=== PATIENT | female | born 1950 | race Caucasian/White ===

== ENCOUNTER 2024-07-02 07:59 | Emergency (ER) | payer MEDICARE, SELFPAY ==
[2024-07-02 08:07] VITALS: BP 183/95
[2024-07-02 08:51] LABS: % Basophils 0.6 % (0-2); % Eosinophils 2.8 % (0-6); % Immature Granulocytes 0.4 % (0-0.5); % Lymphocytes 24.3 % (20.5-51.1); % Monocytes 7.7 % (1.7-9.3); % Neutrophils 64.2 % (42.2-75.2); Absolute Basophils 0.1 10^3/uL (0-0.2); Absolute Eosinophils 0.2 10^3/uL (0-0.7); Absolute Monocytes 0.6 10^3/uL (0.1-0.6); Absolute Neutrophils 5.3 10^3/uL (1.4-6.5); Hematocrit 39.9 % (37.0-47.0); Hemoglobin 14.4 g/dL (12.0-16.0); Mean Corp Hgb Conc. 36.1 g/dL (33.0-37.0); Mean Corpuscular Hgb 32.6 pg (27.0-31.0); Mean Corpuscular Volume 90.3 fL (81.0-99.0); Mean Platelet Volume 10.5 fL (7.4-10.4); Nucleated Red Blood Cells % 0 %; Platelet Count 205 10^3/uL (130-400); Red Blood Cell Count 4.42 10^6/uL (4.20-5.40); Red Cell Dist. Width 12.3 % (11.5-14.5); White Blood Cell Count 8.2 10^3/uL (4.8-10.8)
[2024-07-02 09:02] LABS: ALT (SGPT) 43 U/L (0-35); AST (SGOT) 39 U/L (14-36); Alkaline Phosphatase 96 U/L (38-126); Blood Urea Nitrogen 18 mg/dl (7-17); Calcium 10.2 mg/dl (8.4-10.2); Carbon Dioxide 24 mmol/L (22-30); Chloride 99 mmol/L (98-107); Glucose 107 mg/dl (70-99); Lipase 91 U/L (23-300); Potassium 4.1 mmol/L (3.5-5.1); Sodium 135 mmol/L (135-145); Total Bilirubin 0.6 mg/dl (0.2-1.3); Total Protein 8.1 g/dl (6.3-8.2); eGFR > 60.00
[2024-07-02 09:16] LABS: Urine Albumin 2+ (Neg - Trace); Urine Bilirubin Negative (Negative); Urine Character Clear (Clear); Urine Color Yellow; Urine Glucose Negative (Negative); Urine Ketone Negative (Negative); Urine Leukocyte Negative (Negative); Urine Nitrite Negative (Negative); Urine Occult Blood 4+ (Negative); Urine Urobilinogen Negative (Neg - 1+)
[2024-07-02 10:10] LABS: Urine Bacteria Few (Negative); Urine Red Blood Cell 30-40 /HPF (0-2); Urine White Cell 0-2 /HPF (0-5)
--- NOTE | 2024-07-02 11:22 | ED.GENMED ---
History of Present Illness
General
Chief Complaint: Abdominal Pain
Time Seen by Provider: 07/02/24 11:21
History of Present Illness
History of Present Illness:
TIME OF INITIAL ENCOUNTER: 11:30 AM
HPI: Patient presents with abrupt onset right flank pain that started about 30 hours ago. She was thinking that the symptoms could be related to her gallbladder. She also mentioned that her triglycerides dramatically increased recently. She does
not have any specific right upper quadrant pain. She reports no urinary symptoms. She does take omeprazole chronic. The pain currently is improved compared to how it was yesterday.
EXAM:
GENERAL: Well appearing in no distress
HEENT: Moist oral mucosa
CARDIOVASCULAR: No murmurs, normal heart rate, regular rhythm, No chest wall tenderness
PULMONARY: No respiratory distress, breath sounds are clear and equal
ABDOMEN: Soft with no peritoneal signs, no tenderness specifically no right upper quadrant tenderness, there is some vague right CVA tenderness, no midline lower T/L-spine tenderness
NEUROLOGIC: Excellent strength all extremities, no coordination deficits
PSYCHIATRIC: Appropriate mental status, normal insight and judgement
EXTREMITIES: Nontender, no edema, moves all extremities equally
SKIN: No rash, no lesions
NUMBER AND COMPLEXITY OF PROBLEMS ADDRESSED AT THE ENCOUNTER
� Chronic conditions affecting care: High blood pressure, hyperlipidemia
� Acute Exacerbation and/or Progression of Chronic Illness: This is an acute problem
� Differential Diagnosis includes: Ureteral stone/colic, biliary colic, cholecystitis, pancreatitis
AMOUNT AND/OR COMPLEXITY OF DATA TO BE REVIEWED AND ANALYZED
� I performed an independent evaluation of and my interpretation is:
EKG: Sinus 78, normal axis, no acute ST abnormality
CT: CT imaging shows no sign of stone or any other clear cause of pain. Gallbladder unremarkable.
X-rays:
Laboratory Studies: White count is normal, hemoglobin normal, lipase normal, chemistries unremarkable, minimal transaminase elevation, 4+ blood on urinalysis with 30-40 red cells, no evidence for urinary tract infection
Other:
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
� Clinical information was obtained by an independent historian: None needed but I did speak to the prior to discharge
� Prescriptions/Medications Considered but not given: Offered and considered IV placement for pain medication but patient declines
� Further testing considered but not performed:
RISK OF COMPLICATIONS AND/OR MORBIDITY OR MORTALITY OF PATIENT MANAGEMENT
� Social determinants of health affecting care: Lives at home
� Discussion with other providers:
� Escalation of care including admission/observation vs risk of discharge considered: The patient primarily complains of right flank pain but overall is improved. She has not had a bowel movement recently (she has been taking a
lot of Tylenol and aspirin and thinks this could be a contributing factor) but had diarrhea a few days ago.
ANY OTHER UPDATES:
12 PM: Pain slightly worse�she now request something for pain. Toradol has been ordered. The patient has ongoing pain but appears fairly calm at time of discharge. Will add Flexeril. She tells me that the pain in the back is now migrating toward
the midline and I favor more of a musculoskeletal etiology.
Past History
Past History
ED Past Medical History: HTN, Hypercholesterolemia and Other (Back pain, psychophysiologic insomnia, vasovagal syncope, COVID-19 in May 2021); Negative Renal failure (Chronic kidney disease)
Social History
Tobacco: Former smoker
Drug: None
Personal:
Living: with family
Employment: Not employed
Family History
Family History: Other (Reviewed and noncontributory)
Phy Exam
Physical Exam
Physical Exam:
See HPI
Course
Orders/Labs/Results
Orders:
Orders
07/02/24 08:11
Electrocardiogram (*1) Urgent
Reason for Study: Abdominal Pain
07/02/24 08:12
EKG- Treatment ONCE
07/02/24 08:31
Complete Blood Count/With Diff Urgent
Comprehensive Metabolic Panel Urgent
Lipase Urgent
Urinalysis Reflex To Culture Urgent
Date Specimen was Collected: 07/02/24
Time Specimen was Collected: 08:11
Urine Microscopic Reflex Cult Urgent
07/02/24 11:33
CT Abd/pel Without Iv Or Oral Urgent
Comment:
Reason For Exam: R flank pain microscopic hematuria
07/02/24 12:04
Ketorolac [Toradol] 15 mg IV NOW STA
07/02/24 12:05
Ketorolac [Toradol] 15 mg IV NOW STA
Abnormal Lab Results
07/02/24
08:31
MCH 32.6 H pg
(27.0-31.0)
MPV 10.5 H fL
(7.4-10.4)
BUN 18 H mg/dl
(7-17)
Glucose 107 H mg/dl
(70-99)
AST 39 H U/L
(14-36)
ALT 43 H U/L
(0-35)
Ur Occult Blood Reflex 4+ A
(Negative)
Urine RBC 30-40 A /HPF
(0-2)
Urine Bacteria (Reflex) Few A
(Negative)
Urine Albumin (Reflex) 2+ A
(Neg - Trace)
07/02/24 08:31
07/02/24 08:31
Vital Signs
Initial and Last Documented VS:
Initial Vital Signs
Temp Pulse Resp BP Pulse Ox
37.1 C 81 16 183/95 99
07/02/24 08:07 07/02/24 08:07 07/02/24 08:07 07/02/24 08:07 07/02/24 08:07
Last Documented Vital Signs
Temp Pulse Resp BP Pulse Ox
36.8 C 75 20 204/89 96
07/02/24 12:01 07/02/24 12:01 07/02/24 12:01 07/02/24 12:07/02/24 12:01
*Critical Care Note
Total Time (30-74mins, 75-104mins- exclusive of procedures): Not Applicable
ED Attending Note
-
Portions of this chart may have been created with voice recognition software.� Occasional wrong word or��sound alike� substitutions may have occurred due to the inherent limitations of voice recognition software.
Discharge Plan
Departure
Patient Disposition: Home (Routine Discharge)
Date of Disposition: 07/02/24
Time of Disposition: :25
Patient with high blood pressure during this ER visit?: Yes
Discharge Problem:
Back pain
Instructions: Back Pain, BLOOD PRESSURE
Prescriptions:
New
cyclobenzaprine 10 mg tablet
10 mg PO TID PRN (Reason: pain) Qty: 21 0RF
No Action
allopurinol 100 MG tablet
100 mg PO DAILY
metoprolol tartrate [Lopressor] 50 MG tablet
50 mg PO DAILY
polyethylene glycol 3350 17 GRAMS powder in packet
17 grams PO DAILY
lisinopril 20 mg Tablet
20 mg PO DAILY Qty: 30 0RF
aspirin 81 mg Tablet,Chewable
81 mg PO DAILY Qty: 0 0RF
simvastatin 40 mg tablet
40 mg PO HS Qty: 30 0RF
spironolactone [Aldactone] 25 mg tablet
25 mg PO DAILY Qty: 30 0RF
Referrals:
Jonathan Regalado MD [Family Provider] -
Activity Restrictions/Additional Instructions:
You can take Tylenol and naproxen for pain. However if you take naproxen limit the use of aspirin as they both can be irritating to the stomach. I am sending a prescription for Flexeril to your pharmacy. Return here if worse or other concerns.
The CAT scan did not show any definite cause of your pain including no sign of kidney stones. You should also follow-up with your primary care doctor for recheck of the blood pressure.
Interventions
Interventions:
*Risk Screen - Suicide Last Done: 07/02/24 08:07
*General Assessment Last Done: 07/02/24 12:01
*Neglect/Abuse Screening Last Done: 07/02/24 08:07
ED- Fall Risk Assessment Last Done: 07/02/24 12:01
*ED COVID-19 Vaccine History Last Done: 07/02/24 12:01
LG-Yagmgu-Zciodzdanc Assessment Last Done: 07/02/24 12:01
Discharge Date and Time
Print Language: MACEDONIAN
[2024-07-02 11:55] VITALS: BP 196/86
[2024-07-02 12:00] VITALS: BP 204/89; BMI 24.0
[2024-07-02 12:01] VITALS: BP 204/89
[2024-07-02] MEDS: TORADOL 15 MG IV (12:12)
[2024-07-02 13:36] VITALS: BP 150/81
== END 2024-07-02 13:42 | disposition home or self-care (01) ==
LOC: EMR 07:59
PROVIDERS: EMERGENCY PHYSICIAN Emergency Medicine; FAMILY PHYSICIAN Family Medicine
DX: M54.9 Dorsalgia, unspecified (principal); I10 Essential (primary) hypertension; Z87.891 Personal history of nicotine dependence
CPT/HCPCS: 99285; 96374; 74176; 80053; 81003; 81015; 83690; 85025; 93005

== ENCOUNTER → 2024-10-11 10:48 | Outpatient (REF) | payer MEDICARE, SELFPAY | LOC: WDC 10:48 | PROVIDERS: ATTENDING PHYSICIAN Family Medicine | DX: Z12.31 Encounter for screening mammogram for malignant neoplasm of breast (principal) | CPT/HCPCS: 77063; 77067 ==